=== PATIENT | male | born 1960 | race Caucasian/White ===

== ENCOUNTER 2021-07-25 09:32 | Emergency (ER) | payer OTHER ==
[2021-07-25 09:43] VITALS: TEMP 98.1; BMI 25.8
[2021-07-25] MEDS ORDERED: ASPIRIN 81 MG CHEWABLE TABLETS PO ONE (11:11)
[2021-07-25] MEDS ORDERED: ASPIRIN 81 MG CHEWABLE TABLETS ONE (11:17)
[2021-07-25] MEDS ORDERED: amLODIPine BESYLATE 10 MG TABLET (FP) PO ONE (11:20)
[2021-07-25 11:24] LABS: BASO % 0.6 % (0-2.0); EOS % 1.7 % (0-4.5); HEMATOCRIT 43.4 % (35.4-49); HEMOGLOBIN 14.6 GM/dL (11.7-16.9); MCH 31.7 pg (25.7-33.7); MCHC 33.7 g/dl (32.0-35.9); MEAN PLT VOLUME 7.9 fl (7.5-11.1); MONO % 5.2 % (3.8-10.2); NEUT % 75.5 % (42.8-82.8); PLATELET COUNT 220 10^3/uL (134-434); RBC 4.62 M/mm3 (4.00-5.60); WHITE BLOOD COUNT 8.1 K/mm3 (4.0-10.0)
[2021-07-25] MEDS ORDERED: amLODIPine BESYLATE 5 MG TABLET (FP) ONE ×2 (11:25→11:27)
[2021-07-25 11:31] LABS: INR 0.97 (0.83-1.09); PROTHROMBIN TIME (PATIENT) 11.4 SEC (9.7-13.0)
[2021-07-25 11:34] LABS: ACTIVATED PTT 31.4 SECONDS (25.2-36.5)
[2021-07-25 12:15] LABS: ALBUMIN 3.7 g/dl (3.4-5.0); CALCIUM 9.1 mg/dL (8.5-10.1); MAGNESIUM 2.4 mg/dL (1.8-2.4)
[2021-07-25 12:16] LABS: BLOOD UREA NITROGEN 17.6 mg/dL (7-18)
[2021-07-25 12:19] LABS: CREATININE 1.5 mg/dL (0.55-1.3)
[2021-07-25 12:20] LABS: BILIRUBIN,TOTAL 0.7 mg/dL (0.2-1)
[2021-07-25 12:24] LABS: N-TERMINAL BNP 180.2 pg/ml (5-125)
[2021-07-25 20:59] VITALS: BP 150/90; PULSE 92
== END 2021-07-25 20:59 | disposition short-term general hospital (02) ==
LOC: JER 09:32
DX: I20.0 Unstable angina (principal)
CPT/HCPCS: 36415; 71046-TC-FY; 80053; 82550; 83735; 83880; 84484; 85025; 85610; 85730; 93005; 93010; 99285-25; C9803; U0003; U0005

== ENCOUNTER 2021-07-30 15:37 | Emergency (ER) | payer OTHER ==
[2021-07-30 16:11] VITALS: BP 124/80; PULSE 88; TEMP 97; BMI 21.7
[2021-07-30 18:43] LABS: EPI CELLS 1 /uL (0-25.1); HYALINE CASTS 40 /uL (0-3.1); PH,URINE 6.5 (5.0-8.0); URINE APPEARANCE TURBID; URINE BACTERIA 227 /uL (0-1359); URINE BILIRUBIN NEGATIVE (NEGATIVE); URINE COLOR YELLOW; URINE GLUCOSE (UA) NEGATIVE (NEGATIVE); URINE KETONE NEGATIVE (NEGATIVE); URINE LEUK ESTERASE 2+ (NEGATIVE); URINE NITRITE NEGATIVE (NEGATIVE); URINE PROTEIN 1+ (NEGATIVE); URINE RBC 338 /uL (0-23.9); URINE UROBILINOGEN 0.2 mg/dL (0.2-1.0); URINE WBC 268 /uL (0-25.8)
== END 2021-07-30 19:00 | disposition left against medical advice (07) ==
LOC: JER 15:37
DX: T83.098A Other mechanical complication of other urinary catheter, initial encounter (principal)
CPT/HCPCS: 81003; 87086; 87186; 99283-25

== ENCOUNTER 2021-08-01 04:58 | Emergency (ER) | payer OTHER ==
[2021-08-01 05:58] VITALS: BP 124/65; PULSE 78; TEMP 98.2; BMI 21.7
== END 2021-08-01 06:15 | disposition home or self-care (01) ==
LOC: JER 04:58
DX: T83.091A Other mechanical complication of indwelling urethral catheter, initial encounter (principal)
CPT/HCPCS: 99281-25

== ENCOUNTER 2022-01-03 09:39 | Emergency (ER) | payer OTHER ==
[2022-01-03 10:01] VITALS: TEMP 97.9; BMI 24.2
[2022-01-03 11:10] LABS: BASO % 0.4 % (0-2.0); EOS % 1.5 % (0-4.5); HEMATOCRIT 45.3 % (35.4-49); HEMOGLOBIN 15.4 GM/dL (11.7-16.9); MCH 30.6 pg (25.7-33.7); MCHC 33.9 g/dl (32.0-35.9); MEAN CELL VOLUME 90.2 fl (80-96); MEAN PLT VOLUME 7.7 fl (7.5-11.1); MONO % 5.9 % (3.8-10.2); NEUT % 75.2 % (42.8-82.8); PLATELET COUNT 223 10^3/uL (134-434); RBC 5.02 M/mm3 (4.00-5.60); RDW 14.8 % (11.9-15.9)
[2022-01-03 11:26] LABS: ALBUMIN 4.3 g/dl (3.4-5.0); BLOOD UREA NITROGEN 28.3 mg/dL (7-18); MAGNESIUM 2.5 mg/dL (1.8-2.4)
[2022-01-03 11:29] LABS: CREATININE 1.7 mg/dL (0.55-1.3); PHOSPHOROUS 3.7 mg/dL (2.5-4.9)
[2022-01-03 11:31] LABS: BILIRUBIN,TOTAL 0.9 mg/dL (0.2-1); TOT PROT 7.4 g/dl (6.4-8.2)
[2022-01-03 13:21] LABS: EPI CELLS >36 /uL (0-25.1); HYALINE CASTS 8 /uL (0-3.1); URINE APPEARANCE CLOUDY; URINE BACTERIA 97 /uL (0-1359); URINE BILIRUBIN NEGATIVE (NEGATIVE); URINE COLOR YELLOW; URINE GLUCOSE (UA) NEGATIVE (NEGATIVE); URINE KETONE NEGATIVE (NEGATIVE); URINE LEUK ESTERASE 1+ (NEGATIVE); URINE NITRITE NEGATIVE (NEGATIVE); URINE PROTEIN 1+ (NEGATIVE); URINE RBC 67 /uL (0-23.9); URINE UROBILINOGEN 0.2 mg/dL (0.2-1.0); URINE WBC 171 /uL (0-25.8)
[2022-01-03 14:52] VITALS: BP 159/102; PULSE 90
== END 2022-01-03 14:05 | disposition left against medical advice (07) ==
LOC: JER 09:39
DX: I25.119 Atherosclerotic heart disease of native coronary artery with unspecified angina pectoris (principal); R07.9 Chest pain, unspecified
CPT/HCPCS: 36415; 71046-TC-FY; 80053; 81003; 83735; 84100; 84484; 85025; 87086; 93005; 93010; 99285-25